=== PATIENT | female | born 1955 | race Asian ===

== ENCOUNTER 2020-06-13 17:42 | Emergency (ER) | payer OTHER ==
[~2020-06-13] VITALS: Ht 162.6 cm; Wt 65.9 kg
[2020-06-13] MEDS ORDERED: AMLO-257 PO (17:46)
[2020-06-13 18:44] LABS: APPEARANCE,URINE TURBID (CLEAR); BILIRUBIN,URINE NEGATIVE (NEGATIVE); GLUCOSE, URINE (UA) NEGATIVE (NEGATIVE); KETONES,URINE 15 mg/dL (NEGATIVE); LEUKOCYTE ESTERASE ,URINE LARGE (NEGATIVE); NITRATE,URINE NEGATIVE (NEGATIVE); OCCULT BLOOD,URINE LARGE (NEGATIVE); PROTEIN,URINE SEE CONFIRM (NEGATIVE); UROBILINOGEN,URINE 0.2 mg/dL (<=1.0)
[2020-06-13 18:52] LABS: SULFOSALICYLIC ACID,URINE 3+ (Negative)
[2020-06-13 18:53] LABS: BACTERIA,URINE Moderate /HPF (None Seen); RBC,URINE 26-50 /HPF (0-2); WBC,URINE 51-100 /HPF (0-5)
[2020-06-13 18:54] LABS: SQUAMOUS EPITHELIAL CELL,UR Many /LPF (None Seen)
[2020-06-13 19:36] VITALS: BP 158/84
[2020-06-13] MEDS ORDERED: LEVOFLOXACIN 500 MG TABLET PO ONE (20:00)
== END 2020-06-13 20:22 | disposition home or self-care (01) ==
LOC: EMS 17:42
DX: N39.0 Urinary tract infection, site not specified (principal); I10 Essential (primary) hypertension
CPT/HCPCS: 87086